=== PATIENT | male | born 1970 | race Caucasian/White ===

== ENCOUNTER 2020-03-25 23:15 | Emergency (ER) | payer OTHER, SELFPAY ==
[2020-03-25 23:15] VITALS: BP 157/85; PULSE 76; RESP 18; TEMP 36.2; O2SAT 97; BMI 32.5
--- NOTE | 2020-03-25 23:39 | RAD_ITS ---
STUDY: X-RAY - LEFT KNEE REASON FOR EXAM: Male, 50 years old. Left knee pain after softball injury. Unable to bend knee. TECHNIQUE: 4 view(s) of the knee. COMPARISON: None. FINDINGS: Normal visualized distal femur. Normal visualized proximal tibia and fibula. Normal proximal tibiofibular articulation. 4 mm avulsion fracture inferior margin of the patella on the lateral view. Infrapatellar soft tissue swelling. No joint effusion. RAD/Knee 3 Views IMPRESSION: Avulsion fracture inferior patella with possible injury to the patellar tendon. Electronically Signed: Finn Santana MD at 0:12 EDT , Service support ,
--- NOTE | 2020-03-25 23:40 | ED.VIS.GEN ---
History of Present Illness Chief Complaint: Lower Extremity Injury Informant: Patient Narrative: Suffered an injury tonight playing softball. He planted to run and felt a pop in his knee. He thinks he might have torn his patellar tendon. He had a patellar tendon injury in the right knee remotely. He took some Tylenol. Unable to ambulate and extend his lower leg. Current severity is mild as long as he is resting. Comes in for further evaluation. Happened just tonight. Past Medical History - Allergies and Home Meds Allergies/Adverse Reactions: Allergies No Known Allergies Allergy (Verified 03/25/20 23:17) Primary Care Physician: Yamil Ko MD [Primary Care Provider] - Prior records reviewed: Yes Past Medical History: None Surgical History: - - Right knee Lives: With Family Smoking Status: Never smoker Alcohol: None Drugs: None Review of Systems General: Denies: Chills, Fever, Sweats Eyes: Denies: Visual changes - bilaterally, Diplopia ENT: Denies: Rhinorrhea, Sore throat Cardiovascular: Denies: Chest pain, Palpitations Respiratory: Denies: Dyspnea, Cough, Dyspnea on exertion Gastrointestinal: Denies: Abdominal pain, Nausea, Vomiting, Diarrhea, Melena, Hematochezia Genitourinary: Denies: Dysuria, Hematuria, Frequency Musculoskeletal: Reports: Extremity Pain. Denies: Back pain Skin: Denies: Rash, Wounds Neurological: Denies: Headache, Weakness, Numbness Physical Exam Vital Signs/Narrative: Vital Signs Temp Pulse Resp BP Pulse Ox 03/25/20 23:15 97.1 F L 76 18 157/85 H 97 General: Well nourished, Well developed, No Acute Distress Head: Normocephalic, Atraumatic Eyes: Perrl, EOMI ENT: Moist mucous membranes, No rhinorrhea Neck: Supple, Nontender Cardiovascular: Regular rate, Regular rhythm, No murmurs Respiratory: No distress, CTA bilaterally, Chest nontender Abdomen: Soft, Nontender, Nondistended, Normal bowel sounds Back: Nontender, Normal Inspection Extremities: Tenderness - Tenderness in the infrapatellar tendon which appears to be torn. There is no obvious step-off below the left patella and a high riding patella. Unable to extend the lower extremity. Distal neurovascular intact Skin: Normal color, No rash Neurological: Alert, Oriented x3, Cranial nerves II-XII grossly intact, Normal Strength, Normal Sensation Psychological: Normal affect, Normal Mood Diagnostic/Tx/Re-eval - Medical Decision Making Given ice pack. Declined pain medicine. X-ray of the left knee obtained. Straight shows an avulsion fracture to the inferior patella mild in nature. There is a high riding patella consistent with physical exam and a patellar tendon fracture. Knee immobilizer ordered. Patient will follow-up with orthopedics as an outpatient ED Disposition - Plan for ED Patient: Diagnosis: Patellar tendon rupture, Patellar fracture Instructions: ED FRACTURE Patella Referrals: Peña Ceron DO [STAFF PHYSICIAN] - Additional Instructions: You also have a patella tendon rupture.
[2020-03-26 00:26] VITALS: BP 152/84; PULSE 70; O2SAT 98
== END 2020-03-26 00:35 | disposition home or self-care (01) ==
PROVIDERS: Emergency Provider Emergency Medicine; PCP Family Medicine
DX: S82.002A Unspecified fracture of left patella, initial encounter for closed fracture (principal); S76.112A Strain of left quadriceps muscle, fascia and tendon, initial encounter; X58.XXXA Exposure to other specified factors, initial encounter; Y93.64 Activity, baseball; Y92.9 Unspecified place or not applicable
CPT/HCPCS: 73562; 99283